=== PATIENT | female | born 1975 | race Caucasian/White ===

== ENCOUNTER → 2024-04-13 19:29 | Outpatient (REF) | payer OTHER, SELFPAY | LOC: WDC 19:29 | PROVIDERS: ATTENDING PHYSICIAN Family Medicine | DX: Z12.31 Encounter for screening mammogram for malignant neoplasm of breast (principal) | CPT/HCPCS: 77063; 77067 ==

== ENCOUNTER → 2024-09-18 14:40 | Outpatient (REF) | payer OTHER, SELFPAY | LOC: RAD 14:40 | PROVIDERS: ATTENDING PHYSICIAN Obstetrics & Gynecology; FAMILY PHYSICIAN Family Medicine | DX: N92.0 Excessive and frequent menstruation with regular cycle (principal); N85.2 Hypertrophy of uterus | CPT/HCPCS: 76830; 76856 ==

== ENCOUNTER 2025-01-08 07:20 | Emergency (ER) | payer OTHER, SELFPAY ==
[2025-01-08 07:22] VITALS: BP 97/72
--- NOTE | 2025-01-08 07:46 | ED.GENMED ---
History of Present Illness
General
Chief Complaint: Headache
Source: patient and records
Time Seen by Provider: 01/08/25 07:30
History of Present Illness
History of Present Illness:
49-year-old female with past medical history of migraine headaches presenting to the ER for a migraine headache for the last 11 days, symptoms started rather abruptly 1 day, have been mostly constant since then but the pain does wax and wane in
intensity. The headache is accompanied with nausea and intermittent episodes of vomiting. Patient has been attempting relief of her migraine with Excedrin and Tylenol but without any relief. She notes that she had 1 previous episode many years
ago that required her to be hospitalized overnight here, seen by neurology, symptoms ultimately improved although she did note with that headache she had strokelike symptoms of her right upper extremity. Patient was admitted and had further imaging
but without any acute etiologies found. Patient does note a family history with her father having a CVA but at a later stage in his life. Social history noncontributory. Patient did take some Tylenol this morning but without any relief of
symptoms.
Past History
Past History
ED Past Medical History: Other (migraines)
ED Past Surgical History: Appendectomy and
Social History
Tobacco: Non-smoker
Alcohol: None
Drug: None
Personal:
Living: with family
Employment: Employed
Review of Systems
Review of Systems
All Other Systems: ROS reviewed and negative except as documented in HPI and ROS
Phy Exam
Physical Exam
Physical Exam:
GENERAL: Alert , in no apparent distress, was able to ambulate with a steady gait
HEAD: Normocephalic atraumatic
EYE: conjunctiva clear
NECK: Supple, non meningeal
ENT: mmm.
CARDIAC: Regular rate and rhythm
LUNGS: Clear breath sounds bilaterally, no acute respiratory distress, no wheezes/rales/rhonchi
NEUROLOGICAL: Alert and oriented
SKIN: Warm and dry, skin intact.
MUSCULOSKELETAL: well perfused.
PSYCH: Normal and appropriate interaction.
Scores
Heart Failure Risk
Heart Failure Risk Score: Not Applicable
Heart Score for Chest Pain Patients
STEMI patient?: Not applicable
Withdrawal Assessment of Alcohol
Withdrawal Assessment Completed?: Not applicable
Course
Orders/Labs/Results
Orders:
Orders
01/08/25 07:43
0.9% Sodium Chloride 1000 ml [Nss] 1,000 ml IV BOLUS
Dexamethasone Sod Phosphate [Decadron] 10 mg IV NOW STA
Diphenhydramine [Benadryl] 25 mg IV NOW STA
Metoclopramide [Reglan] 10 mg IV NOW STA
01/08/25 07:44
CT Head W/o Iv Contrast Urgent
Comment:
Reason For Exam: headache x 11 days
01/08/25 08:00
CRP [C-Reactive Protein] Urgent
Complete Blood Count/With Diff Urgent
Comprehensive Metabolic Panel Urgent
ESR [Erythrocyte Sed Rate] Urgent
Ehrlichia/Anaplasma by PCR [S] Urgent
Lyme Progressive Urgent
Blood Parasites Urgent
MOHINI Source: Blood/Venous
Specimen Description:
Abnormal Lab Results
01/08/25
08:00
RBC 3.96 L 10^6/uL
(4.20-5.40)
Hct 36.6 L %
(37.0-47.0)
MCHC 32.8 L g/dL
(33.0-37.0)
Absolute Lymphs (auto) 1.0 L 10^3/uL
(1.2-3.4)
Lymphocytes % 16.3 L %
(20.5-51.1)
Monocytes % 9.5 H %
(1.7-9.3)
Alkaline Phosphatase 35 L U/L
(38-126)
01/08/25 08:00
01/08/25 08:00
Vital Signs
Initial and Last Documented VS:
Initial Vital Signs
Temp Pulse Resp BP Pulse Ox
98.4 F 70 18 97/72 99
01/08/25 07:22 01/08/25 07:22 01/08/25 07:22 01/08/25 07:22 01/08/25 07:22
Last Documented Vital Signs
Temp Pulse Resp BP Pulse Ox
98.4 F 70 18 91/62 99
01/08/25 07:22 01/08/25 07:22 01/08/25 07:22 01/08/25 08:00 01/08/25 07:51
MDM/Problems Addressed
Differential Diagnosis Includes:
Intractable headache/migraine
Tension headache
Cluster headache
Intracranial bleeding
Mass/malignancy
Meningitis/encephalitis
Lyme's disease
Electrolyte imbalance
MDM/Problems Addressed:
49-year-old female presenting to the ER for evaluation of intractable headache x 11 days, history of similar requiring hospitalization 11 years ago. Had MRI at that time which was unremarkable. Patient notes that she did have strokelike symptoms
with right upper and lower extremity weakness at that time but is denying any of the symptoms presently. No focal neurologic deficits noted on exam. Patient otherwise hemodynamically stable. Will check labs, treat with migraine cocktail of
Reglan, Benadryl and Decadron. CT of the head ordered to rule out any potential intracranial pathology/secondary cause of headache
Chronic conditions affecting care: Neurological disorder (migraines)
Acute Exacerbation and/or Progression of Chronic Illness: Neurological disorder (migraines)
*Radiology
Radiology exam reviewed: radiology read reviewed
*Pulse Oximetry
SaO2: 99
Oxygen Mode of Delivery: Room air
Patient hypoxic: no
*Critical Care Note
Total Time (30-74mins, 75-104mins- exclusive of procedures): Not Applicable
Data Reviewed
Review of Other/Old Records Reveals: Labs, Records and Radiology Studies
Source: patient and records
Patient Management
Escalation/DeEscalation of care consider admission/obs:
Patient reports near resolution of her headache. Labs and imaging unremarkable, offered to continue monitoring patient in the ER however she states she feels well enough to be discharged home. Encourage close follow-up with primary care provider.
Aware of return precautions to the ER
ED Attending Note
-
Portions of this chart may have been created with voice recognition software.� Occasional wrong word or��sound alike� substitutions may have occurred due to the inherent limitations of voice recognition software.
Discharge Plan
Departure
Patient Disposition: Home (Routine Discharge)
Date of Disposition: 01/08/25
Time of Disposition: 09:18
Patient with high blood pressure during this ER visit?: No
Discharge Problem:
Migraine headache
Instructions: Migraines (DC)
Prescriptions:
No Action
Control
1 tab PO .1600
Patient Comments:
unknown name or dose of birthcontrol
escitalopram oxalate 10 MG tablet
10 mg PO QPM
sumatriptan succinate 50 MG tablet
50 mg PO PRN PRN (Reason: Migraine Headache) Qty: 15 0RF
Rx Instructions:
Take one tab at start of headache - May repeat dose x 1 after 2 hours if headache persists. No more than 2 doses in a 24 hour period.
coenzyme Q10 [Co Q-10] 100 MG capsule
100 mg PO DAILY Qty: 0 0RF
magnesium gluconate 27 MG tablet
54 mg PO DAILY Qty: 0 0RF
riboflavin (vitamin B2) [Vitamin B-2] 100 MG tablet
200 mg PO DAILY Qty: 0 0RF
Referrals:
Lloyd Villafuerte MD [Family Provider, Family Practice]
Stand Alone Forms: Return to Work
Interventions
Interventions:
*Risk Screen - Suicide Last Done: 01/08/25 07:22
*General Assessment Last Done: 01/08/25 07:22
*Neglect/Abuse Screening Last Done: 01/08/25 07:22
*ED- Fall Risk Assessment Last Done: 01/08/25 09:47
*ED COVID-19 Vaccine History Last Done: 01/08/25 09:47
*Nursing Disposition Last Done: 01/08/25 09:47
JA-Wkicfq-Wgpvndbvdy Assessment Last Done: 01/08/25 08:14
ED- Neurological Assessment Last Done: 01/08/25 08:14
Discharge Date and Time
Discharge Date/Time: 01/08/25 09:49
Print Language: [id number]
[2025-01-08 08:00] VITALS: BP 91/62
[2025-01-08] MEDS: NSS 1000 IV (08:00)
[2025-01-08] MEDS: BENADRYL 25 MG IV (08:01)
[2025-01-08] MEDS: REGLAN 10 MG IV (08:04)
[2025-01-08] MEDS: DECADRON 10 MG IV (08:04)
[2025-01-08 08:23] LABS: Hematocrit 36.6 % (37.0-47.0); Hemoglobin 12.0 g/dL (12.0-16.0); Mean Corp Hgb Conc. 32.8 g/dL (33.0-37.0); Mean Corpuscular Volume 92.4 fL (81.0-99.0); Nucleated Red Blood Cells % 0 %; Platelet Count 200 10^3/uL (130-400); Red Cell Dist. Width 12.6 % (11.5-14.5)
[2025-01-08 08:39] LABS: ALT (SGPT) 22 U/L (0-35); AST (SGOT) 25 U/L (14-36); Albumin 4.2 g/dl (3.5-5.0); Alkaline Phosphatase 35 U/L (38-126); Blood Urea Nitrogen 12 mg/dl (7-17); Calcium 9.2 mg/dl (8.4-10.2); Carbon Dioxide 29 mmol/L (22-30); Chloride 105 mmol/L (98-107); Glucose 77 mg/dl (70-99); Potassium 3.9 mmol/L (3.5-5.1); Sodium 137 mmol/L (135-145); Total Protein 6.5 g/dl (6.3-8.2); eGFR > 60.00
[2025-01-08 08:41] LABS: C-Reactive Protein < 5.00 mg/L (0.0-10.00)
[2025-01-11 12:46] LABS: Lyme Antibody Screen, EIA Negative (Negative)
== END 2025-01-08 09:49 | disposition home or self-care (01) ==
LOC: EMR 07:20
PROVIDERS: Physician Assistant Medical; EMERGENCY PHYSICIAN Emergency Medicine; FAMILY PHYSICIAN Family Medicine
DX: G43.909 Migraine, unspecified, not intractable, without status migrainosus (principal)
CPT/HCPCS: 99284; 96374; 96375 ×2; 70450; 80053; 85025; 85652; 86140; 86618; 87015; 87207; 87468; 87484; 87798

== ENCOUNTER → 2025-04-16 07:24 | Outpatient (REF) | payer OTHER, SELFPAY | LOC: WDC 07:24 | PROVIDERS: ATTENDING PHYSICIAN Family Medicine | DX: Z12.31 Encounter for screening mammogram for malignant neoplasm of breast (principal) | CPT/HCPCS: 77063; 77067 ==